=== PATIENT | male | born 1965 | race Caucasian/White ===

== ENCOUNTER 2023-11-24 18:59 | Emergency (ER) | payer MEDICARE ==
[~2023-11-24] VITALS: Ht 170.2 cm; Wt 79.4 kg
[2023-11-24 19:17] VITALS: BP 188/93; PULSE 90; RESP 18; TEMP 97.9; O2SAT 98
[2023-11-24 21:43] VITALS: BP 166/83; PULSE 77; RESP 15; O2SAT 97
[2023-11-24] MEDS: KETOROLAC 30 MG/ML VIAL IM ONE (23:12)
[2023-11-24] MEDS: HYDROcodone/APAP 5/325 MG 1 TAB TAB PO ONE (23:13)
[2023-11-24] MEDS: methocarbamoL 500 MG TAB PO ONE (23:13)
[2023-11-24] MEDS: ACETAMINOPHEN EXTRA STRENGTH 500 MG TAB PO ONE (23:14)
[2023-11-25] MEDS ORDERED: GABA300C PO (00:16)
[2023-11-25] MEDS ORDERED: METH-1681 PO (00:16)
== END 2023-11-25 00:25 | disposition home or self-care (01) ==
LOC: MED 18:59
DX: M25.562 Pain in left knee (principal); M62.838 Other muscle spasm; M25.552 Pain in left hip; Z86.73 Personal history of transient ischemic attack (TIA), and cerebral infarction without residual deficits; Z79.899 Other long term (current) drug therapy
CPT/HCPCS: 73502; 73562; 96372; 99284; J1885; Q0092

== ENCOUNTER 2023-12-29 10:59 | Emergency (ER) | payer MEDICARE, MEDICAID ==
[~2023-12-29] VITALS: Ht 180.3 cm; Wt 68.0 kg
[~2023-12-29 10:59] MED LIST: GABA300C PO; METH-1681 PO
[2023-12-29 11:06] VITALS: BP 137/84; PULSE 78; RESP 18; TEMP 97.8; O2SAT 95
[2023-12-29] MEDS ORDERED: ACET-8905 PO (11:33)
[2023-12-29] MEDS ORDERED: GABA300C PO (11:33)
[2023-12-29] MEDS: MORPHINE SULFATE 4 MG/ML SYR IM ONE (11:38)
[2023-12-29 12:12] VITALS: BP 137/84; PULSE 78; RESP 18; TEMP 97.8; O2SAT 95
[2023-12-30] MEDS ORDERED: GABA300C PO (11:53)
[2023-12-30] MEDS ORDERED: ACET-8905 PO (11:53)
== END 2023-12-29 12:10 | disposition home or self-care (01) ==
LOC: MED 10:59
DX: R56.9 Unspecified convulsions (principal); M79.2 Neuralgia and neuritis, unspecified; J44.9 Chronic obstructive pulmonary disease, unspecified; F17.200 Nicotine dependence, unspecified, uncomplicated; Z86.73 Personal history of transient ischemic attack (TIA), and cerebral infarction without residual deficits; Z98.890 Other specified postprocedural states; Z79.899 Other long term (current) drug therapy
CPT/HCPCS: 96372; 99283; J2270

== ENCOUNTER 2024-01-12 20:12 | Emergency (ER) | payer MEDICARE, MEDICAID ==
[~2024-01-12] VITALS: Ht 180.3 cm; Wt 79.4 kg
[~2024-01-12 20:12] MED LIST changes: +ACET-8905 PO
[2024-01-12 20:17] VITALS: BP 163/91; PULSE 64; RESP 18; TEMP 98.2; O2SAT 98
[2024-01-12] MEDS: ACETAMINOPHEN 325 MG TAB PO ONE (20:36)
[2024-01-12 20:51] VITALS: BP 163/91; PULSE 64; RESP 18; TEMP 98.2
[2024-01-12 21:06] VITALS: O2SAT 98
[2024-01-12] MEDS ORDERED: MORPHINE SULFATE 4 MG/ML SYR IVP PRN (21:35)
[2024-01-12] MEDS ORDERED: HYDROcodone/APAP 5/325 MG 1 TAB TAB PO PRN (21:40)
[2024-01-12] MEDS ORDERED: POTASSIUM CHLORIDE 10 MEQ TABER PO ONE (21:45)
== END 2024-01-12 22:28 | disposition home or self-care (01) ==
LOC: MED 20:12
DX: S09.90XA Unspecified injury of head, initial encounter (principal); S69.92XA Unspecified injury of left wrist, hand and finger(s), initial encounter; Z86.73 Personal history of transient ischemic attack (TIA), and cerebral infarction without residual deficits; J44.9 Chronic obstructive pulmonary disease, unspecified; Z86.69 Personal history of other diseases of the nervous system and sense organs; Z79.1 Long term (current) use of non-steroidal anti-inflammatories (NSAID); Z79.899 Other long term (current) drug therapy; W18.39XA Other fall on same level, initial encounter; Y93.89 Activity, other specified; Y92.89 Other specified places as the place of occurrence of the external cause; Y99.8 Other external cause status
CPT/HCPCS: 70450; 72125; 99284

== ENCOUNTER 2024-01-17 11:35 | Emergency (ER) | payer MEDICARE, MEDICAID ==
[~2024-01-17] VITALS: Ht 180.3 cm; Wt 72.6 kg
[2024-01-17 11:37] VITALS: BP 157/85; PULSE 74; RESP 11; TEMP 98.2; O2SAT 96
[2024-01-17 11:53] VITALS: O2SAT 96
[2024-01-17] MEDS ORDERED: BACI-105 TP (12:27)
== END 2024-01-17 13:40 | disposition home or self-care (01) ==
LOC: MED 11:35
DX: S30.810A Abrasion of lower back and pelvis, initial encounter (principal); G40.89 Other seizures; J44.9 Chronic obstructive pulmonary disease, unspecified; Z86.73 Personal history of transient ischemic attack (TIA), and cerebral infarction without residual deficits; Z79.899 Other long term (current) drug therapy; Z98.890 Other specified postprocedural states; X58.XXXA Exposure to other specified factors, initial encounter; Y93.89 Activity, other specified; Y92.89 Other specified places as the place of occurrence of the external cause; Y99.8 Other external cause status
CPT/HCPCS: 99283

== ENCOUNTER 2024-02-03 09:14 | Emergency (ER) | payer MEDICARE, MEDICAID ==
[~2024-02-03] VITALS: Ht 180.3 cm; Wt 74.8 kg
[~2024-02-03 09:14] MED LIST changes: +BACI-105 TP
[2024-02-03 09:15] VITALS: BP 125/75; PULSE 61; RESP 16; TEMP 97.8; O2SAT 92
[2024-02-03 10:11] LABS: BASOPHILS % (AUTO) 0.4 % (0.0-2.0); EOSINOPHILS # (AUTO) 0.2 K/uL (0-0.4); EOSINOPHILS % (AUTO) 1.8 % (0.0-4.0); HEMATOCRIT 42.3 % (36-52); HEMOGLOBIN 14.7 g/dL (12.0-18.0); LYMPHOCYTES # (AUTO) 0.9 K/uL (2.0-11.5); LYMPHOCYTES % (AUTO) 10.5 % (20.5-51.1); MEAN CORPUSCULAR HEMOGLOBIN 33 pg (27-31); MEAN CORPUSCULAR HGB CONC 35 g/dL (33-37); MEAN CORPUSCULAR VOLUME 93.9 fL (80-94); MONOCYTES # (AUTO) 0.5 K/uL (0.8-1.0); MONOCYTES % (AUTO) 5.2 % (1.7-9.3); NEUTROPHILS # (AUTO) 7.3 K/uL (1.8-7.7); NEUTROPHILS % (AUTO) 82.1 % (42.2-75.2); PLATELET COUNT (AUTO) 246 K/uL (140-450); RED BLOOD CELL COUNT(AUTO) 4.51 MIL/uL (4.20-6.10); RED CELL DISTRIBUTION WIDTH 13.6 % (11.6-13.7); WHITE BLOOD COUNT (AUTO) 8.9 K/uL (4.8-10.8)
[2024-02-03 10:21] LABS: ANION GAP 12.7 (8-16); CARBON DIOXIDE 26.6 mmol/L (21-32); CREATININE 0.9 mg/dL (0.6-1.3); POTASSIUM 4.3 mmol/L (3.5-5.1)
[2024-02-03] MEDS: NACL 0.9% 1,000 ML IV ONE (10:28)
[2024-02-03 10:30] LABS: ALANINE AMINOTRANSFERASE 27 U/L (12-78); ALBUMIN 3.8 g/dL (3.4-5.0); ALKALINE PHOSPHATASE 143 U/L (50-136); ASPARTATE AMINOTRANSFERASE 17 U/L (15-37); BILIRUBIN,DIRECT 0.2 mg/dL (0.0-0.3); TOTAL BILIRUBIN 0.5 mg/dL (0.0-1.0); TOTAL PROTEIN, SERUM 6.5 g/dL (6.4-8.2)
[2024-02-03 10:38] LABS: INR 0.94 (0.8-1.2); PARTIAL THROMBOPLASTIN TIME 24.1 secs (22-35.6); PROTHROMBIN TIME 9.9 secs (10.8-13.4)
[2024-02-03] MEDS ORDERED: MECL-303 PO (12:09)
[2024-02-03 12:22] VITALS: BP 138/82; PULSE 62; RESP 14; TEMP 97.8; O2SAT 96
== END 2024-02-03 12:22 | disposition home or self-care (01) ==
LOC: MED 09:14
DX: R42 Dizziness and giddiness (principal); R11.2 Nausea with vomiting, unspecified; R05.9 Cough, unspecified; H53.8 Other visual disturbances; J44.9 Chronic obstructive pulmonary disease, unspecified; I10 Essential (primary) hypertension; F41.9 Anxiety disorder, unspecified; M19.90 Unspecified osteoarthritis, unspecified site; Z86.73 Personal history of transient ischemic attack (TIA), and cerebral infarction without residual deficits; Z86.69 Personal history of other diseases of the nervous system and sense organs; Z79.1 Long term (current) use of non-steroidal anti-inflammatories (NSAID); Z79.899 Other long term (current) drug therapy
CPT/HCPCS: 36415; 70450; 71045; 80048; 80076; 84484; 85025; 85610; 85730; 93005; 96360; 99285; J7030